=== PATIENT | female | born 1965 | race Caucasian/White ===

== ENCOUNTER 2016-07-29 14:20 | Inpatient (IN) | payer BC ==
--- NOTE | ~2016-07-29 | EKG ---
PATIENT: JEF MURDOCK UNIT #: [id number] Ventricular Rate: 77 BPM Atrial Rate: 77 BPM P-R Interval: 158 ms QRS Duration: 80 ms Q-T Interval: 384 ms QTC Calculation(Bezet): 434 ms P [place]: 20 degrees Calculated R [place]: 20 degrees Calculated T [place]: 6 degrees Diagnosis Line: Normal sinus rhythm Diagnosis Line: Normal ECG Diagnosis Line: When compared with ECG of 30-JUL-2016 06:27, Diagnosis Line: (unconfirmed) Diagnosis Line: Previous ECG has undetermined rhythm, needs review Diagnosis Line: Confirmed by MADELIN RODRIGUES MD ([id number]) on 07/30/2016 Diagnosis Line: 7:32:41 PM INTERPRETING MD: LILIA BUCKNER
--- NOTE | ~2016-07-29 | CO ---
Unit #: [id number] #: [id number] Patient: JEF MURDOCK [id number] [address] [address] [id number] I MR#: [id number] NAME: JEF MURDOCK ROOM: 571 Age: 50 Sex: F Admission Date: 07/29/2016 : 1965 Attending Physician: Ilda Hung M.D. Primary Care Physician: Nelly Lopez M.D. 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 Last month D and C. Now comes with bleeding. HISTORY OF PRESENT ILLNESS This is a 50-year-old female who had a DVT and PE in 2004. She received 6 months of Coumadin therapy and quit. In 2003 she presented with lightheadedness and dizziness. CT of the chest showed PE. The patient had endovascular procedure, including TPA. She had significant improvement. She was on Xarelto, but I am not sure about compliance. She presented to the hospital with thrombosis of the aortic valve, tricuspid valve. There were emboli in the coronary arteries, as well. This was a unique situation. The patient had a cardiac cath. The patient had placement of stents in the coronary artery. She was started on Lovenox, Coumadin, aspirin and Brilinta. As expected, she started bleeding (1) abdominal wall. Finally, at present she is taking Coumadin and Brilinta. The patient has excessive bleeding during menstrual period. She had a D and C. She had conization. Last week the patient started bleeding during menstrual period. It did not stop. The patient became symptomatic. The patient came to the hospital, and CBC showed WBC of 7.3, hemoglobin 5.7, MCV 78 and platelets 451. Her INR is 1.9. Creatinine is 0.7. LFTs are normal. She has received 4 units of PRBCs. Today hemoglobin is 8.7. At present she is still bleeding. Changing multiple pads. REVIEW OF SYSTEMS CONSTITUTIONAL: No fever, no chills, no sweats, no weight loss. EYES: No visual symptoms. EARS, NOSE AND THROAT: There is no runny nose or sore throat or difficulty hearing. CARDIOVASCULAR: No chest pain. No shortness of breath. No palpitations. No orthopnea. No PND. RESPIRATORY: No cough. No wheezing. No hemoptysis. GASTROINTESTINAL: No nausea, vomiting, diarrhea, constipation, hematochezia or melena. GENITOURINARY: No urinary frequency, hesitancy or urgency. No blood in the urine. MUSCULOSKELETAL: No muscle or joint pain. NEUROLOGIC: No headache. No numbness or tingling. No weakness. No seizure. Unit #: [id number] #: [id number] Patient: JEF MURDOCK PSYCHIATRIC: No anxiety, depression or mood disturbance. ENDOCRINE: No excessive urination or thirst. DERMATOLOGIC: No rash or change in the skin. ALLERGIC/IMMUNOLOGIC: No symptoms. HEMATOLOGIC/LYMPHATIC: Denies any symptoms. PAST MEDICAL HISTORY 1. Recurrent DVT/PE. 2. 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 3. Emboli in the coronary artery. 4. Lupus anticoagulant positive. 5. Possible coronary artery disease. ALLERGIES None. SOCIAL HISTORY No smoking. No alcohol. No drugs. 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 SURGICAL HISTORY None. FAMILY HISTORY No one in the family has bleeding or thrombosis. PHYSICAL EXAMINATION VITALS: Afebrile. Pulse 76, respirations 18, O2 sat not available, blood pressure 140/65. HEENT: Moist mucosa. Pupils equally reactive to light. Extraocular muscles intact. Sclerae anicteric. No obvious bleeding from nasal mucosa or oral mucosa. Scalp normal. Hearing normal. NECK: No JVD. No lymphadenopathy. LYMPHATIC/HEMATOLOGIC: There is no palpable adenopathy in the neck, axilla or inguinal area. CARDIOVASCULAR: S1, S2. Regular rate and rhythm. No S3 or S4. RESPIRATORY: Chest symmetrical, normal. Clear to auscultation bilaterally. No wheezes, no rales, no rhonchi. No dullness to percussion. ABDOMEN/GASTROINTESTINAL: Abdomen is soft, nontender, nondistended. No hepatosplenomegaly. EXTREMITIES: There is no clubbing, no cyanosis, no edema. No varicose veins. NEUROLOGICAL: Patient is alert, awake and oriented x3. Cranial nerves II-XII are intact. Sensory grossly intact. Motor is 4/5 in all four extremities. Gait is normal. Station is normal. Language is normal. Memory is normal. DTRs +2 in all four extremities. MUSCULOSKELETAL: No joint swelling. No bony tenderness. No muscle tenderness. SKIN: No petechiae, no rash, no ecchymosis. PSYCHIATRIC: No anxiety. No delusions or hallucinations. There is no agitation. Eye contact is normal. Affect is appropriate. There is no flight of ideas. DIAGNOSTIC STUDIES LABS: As mentioned above. ASSESSMENT AND PLAN This is a 50-year-old female who has the following active issues: Unit #: [id number] #: [id number] Patient: JEF MURDOCK 1. Thrombosis. She is positive for lupus anticoagulant. She had DVT and PE in 2004. The patient had extensive PE. The patient has taken Xarelto. Not compliant. She developed emboli in the coronary artery, thrombotic vegetation of the aortic and tricuspid valves. She received Lovenox, Coumadin, Brilinta, aspirin. She developed bleeding, and now she has been taking Coumadin and Brilinta. At present she presents with excessive bleeding with menstrual period. Her Coumadin and Brilinta are on hold. 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 The patient has excessive bleeding during menstrual period. This has been going on for more than 6 months. We recommend hysterectomy. She had D and C. She also had conization. I had an extensive discussion with the patient. We will try to get hysterectomy in the future. 3. Anemia. This is due to acute bleed. Will give PRBC transfusion. (2) folic acid, B12. 4. Cardiovascular. The patient had emboli in the coronary artery. This is a unique situation. She had placement of stents. She is taking Brilinta. She is taking Coumadin for thrombosis. At present on hold. Once the bleeding improves, then we will restart. Dictated by... Azra Mccarty M.D. Lily TD: 07/31/2016 08:25 JOB #: [id number] CONSULTATION REPORT X Azra Mccarty MD X CONSULTATION REPORT
--- NOTE | ~2016-07-29 | CO ---
Unit #: [id number] #: [id number] Patient: JEF DAMON [id number] [address] [address] [id number] I MR#: [id number] NAME: JEF DAMON ROOM: 571 Age: 50 Sex: F Admission Date: 07/29/2016 : 1965 Attending Physician: Ilda Hung M.D. Primary Care Physician: Nelly Lopez M.D. Consultation Date: 07/29/2016 CONSULTATION REPORT REASON FOR CONSULTATION Severe anemia. HISTORY OF PRESENTING ILLNESS Ms. Damon is a 50-year-old female. She was admitted by Dr. Hung today with hemoglobin of 5.4. She has been having dizziness and weakness on minimal exercise and walking. She says it started about three days ago. She denies any nausea, vomiting, denies any trouble swallowing, denies any hematemesis, melena, denies any change in bowel movements or blood in the stool. She is 50. She has not had a previous colonoscopy. She does not have any history of peptic ulcer disease or previous upper endoscopies either. Patient has been having excessive menstrual loss along with blood clots. She states her menstrual blood loss is excessive every time. However, also she had a conization of her cervix a few days ago by her metal pourer and there is a possibility that could have led to bleeding too while she was restarted on Brilinta and Coumadin. PAST HISTORY Significant for: 1. Coronary artery disease. 2. Congestive heart failure. 3. She has been on Brilinta and Coumadin. 4. No previous GI history. SOCIAL HISTORY Nonsmoker, nonalcoholic. FAMILY HISTORY Noncontributory. No history of colon cancer. REVIEW OF SYSTEMS A complete ten point review of systems was done which is unremarkable other than as mentioned above. PHYSICAL EXAMINATION VITAL SIGN: Stable, afebrile. GENERAL: No acute distress. HEENT: Pupils equal and reactive. Sclerae anicteric. Oral mucosa moist. NECK: No JVD, no lymphadenopathy. CHEST: Clear to auscultation bilaterally. CARDIOVASCULAR SYSTEM: Regular rate and rhythm. No murmurs. ABDOMEN: Soft, nontender, nondistended. Unit #: [id number] #: [id number] Patient: JEF DAMON EXTREMITIES: Without clubbing, cyanosis or edema. NEUROLOGICAL: Intact. SKIN: Warm and dry. DIAGNOSTIC STUDIES LABORATORY: Her chemistries show low iron, low ferritin levels. CBC shows a hemoglobin of 5.7 on arrival, MCV of 78, platelet count 451. INR of 2.1. ASSESSMENT AND PLAN Patient with severe iron deficiency anemia secondary to blood loss. Her obvious blood loss is menstrual, possibly worsened with her cervical surgery. She has been stopped on Brilinta and Coumadin for now. We will continue with supportive care, give her blood transfusion to bring her up to 8 and also give her iron infusion to replace her iron storers. The patient is at high risk of colorectal cancer secondary to her age. Also, because of her requiring Brilinta and Coumadin both, Dr. Hung wanted upper endoscopy and colonoscopy for evaluation before starting her back on Coumadin. I had a discussion with the patient. She is agreeable. Once stabilized and 72 hours off these medications, we will plan on doing upper endoscopy and colonoscopy for ruling out any GI loss of blood. Thank you, Dr. Hung, for this interesting consult. Will follow along. Dictated by... Tiara Billings/jayant TD: 07/30/2016 09:27 JOB #: [id number] CONSULTATION REPORT X Fernandez Khoury MD X CONSULTATION REPORT
--- NOTE | ~2016-07-29 | DS ---
Unit #: [id number] #: [id number] Patient: JEF MURDOCK [id number] [address] [address] [id number] I MR#: [id number] NAME: JEF MURDOCK ROOM: 571 Age: 50 Sex: F Admission Date: 07/29/2016 : 1965 Discharge Date: 08/02/2016 Attending Physician: Ilda Hung M.D. Primary Care Physician: Nelly Lopez M.D. DISCHARGE SUMMARY CONSULTANTS Dr. Azra Mccarty, hematology and Dr. Khoury, gastrology. DISCHARGE DIAGNOSES 1. Severe blood loss anemia secondary to excessive vaginal bleeding. 2. Status post blood transfusions x5. 3. History of lupus anticoagulant positive. 4. History of recent thrombosis in the aortic and tricuspid valves. 5. History of ST elevation myocardial infarction 06/13/2015 with spontaneous coronary artery disease involving the right coronary artery with successful PCI and stenting with drug eluting stent to the mid and distal to ostial proximal right coronary artery. 6. History of deep venous thrombosis and pulmonary embolism. 7. Obesity. DISCHARGE MEDICATIONS 1. Lupron 7.5 mg IM q. month. 2. Metoprolol tartrate 25 mg b.i.d. 3. Lipitor 40 mg q.h.s. 4. Ferrous sulfate 1 tablet daily. 5. Brilinta 90 mg b.i.d. 6. Folic acid 1 mg daily. 7. Lovenox 40 units subcu b.i.d. HOSPITAL COURSE This is a 50-year-old white female who presented to the office complaining of dizziness, increased shortness of breath and weakness. She had significant menstrual bleeding with large clots at home. Laboratory values were obtained for which the patient's blood count revealed a hemoglobin of 5.7. She was subsequently admitted. She received 2 units of packed red blood cells on the day of her admission. Throughout her stay she continued to have uterine bleeding with large clots. Dr. Khoury was asked to see the patient and wanted to rule out a GI for his anemia. But after a discussion between Dr. Hung and Dr. Mccarty who was also consulted and Dr. Khoury it was decided to hold off on GI workup at this time. Her hemoglobin gradually jens to a peak of 9.3 but not without receiving a total of [address] Mccarty saw the patient and started her on folic acid and B12. The patient has a history of deep vein thrombosis with aortic and tricuspid valve thrombosis. She also has coronary artery disease with history of myocardial infarction with drug-eluting stents in 2014. She needed to be on long-term anticoagulation with Brilinta and Coumadin. 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 Effort was made to try to find a ethylene compressor operator Unit #: [id number] #: [id number] Patient: JEF MURDOCK within her plan network. Her vaginal bleeding eventually stopped. The patient was started on Lovenox 40 mg b.i.d. Coumadin, of course, was discontinued on the day of admission. Dr. Mccarty felt the patient could be discharged home on Lupron injections 7.5 mg. He is to see her in the office on Friday for further plans. Her blood pressure has remained stable throughout her stay when she required no vasoactive support. She is stable for discharge today. PHYSICAL EXAMINATION VITAL SIGNS: Blood pressure 107/51, heart rate 79. CHEST: Clear to auscultation. HEART: S1 and S2 with regular rate and rhythm. ABDOMEN: Soft with bowel sounds present. EXTREMITIES: Without leg edema. DIAGNOSTIC STUDIES LABORATORY STUDIES: Glucose 87, BUN 12, creatinine 0.7, sodium 139, potassium 3.9, white count 6.3, hemoglobin 9.0, hematocrit 27.7, platelet count 308. CARDIOVASCULAR STUDIES: Rhythm strip shows normal sinus rhythm. PLANS 1. The patient will be discharged home today. 2. Followup with Dr. Hung on 11/01/2016 at 11:00 a.m. 3. Followup with Dr. Mccarty in the clinic on Friday. 4. Lupron injection has been given prior to discharge. 5. Coumadin will be withheld. The patient is to continue Lovenox 40 mg b.i.d. 6. Amlodipine has been discontinued and the patient will continue on metoprolol and a statin. Dictated by... Paxton Zavala A.P.R.N. for Tiara Quach TD: 08/05/2016 13:06 JOB #: [id number] DISCHARGE SUMMARY X Paxton Zavala APRN DISCHARGE SUMMARY
--- NOTE | ~2016-07-29 | BMI ---
[facility] Nutrition Therapy DATE: 07/30/16 Patient: JEF MURDOCK Physician: ATTPRE Address: [address] [place] [address] Room/Bed: [address] [place] [address], Zip: [place] [address] Admit Date: 07/29/16 Date of : [birth year] Height: 4 11 Weight: 222 101 HIGH BMI NOTE: DX: 50 Y.O. FEMALE ADMITTED FOR HYPERTENSION ANTHROPOMETRICS: 4'11", WT: 222# (101 KG), BMI: 44.8 DIET: HH INTERVENTION: 1. DIET RECOMMENDATIONS: 1. CONTINUE CURRENT DIET ORDER ABOVE TO PROMOTE GRADUAL WEIGHT LOSS TOWARDS HEALTHY BMI (19.0-25.0) OR +/-10%IBW RD WILL F/U PER PROTOCOL Respectfully, NICOLAS HERNANDEZ MS, RD, LD Food and Nutritional Services [facility] cc: client file
[~2016-07-29 14:20] MED LIST changes: -AMLODIPINE BESYL5 MG PO; -BRILINTA90 MG PO; -COUMADIN1 MG PO; -FOLIC ACID1 MG PO; -IRON325 ( 652 PO; -LIPITOR40 MG PO; -LUPRON DEPOT7.5 MG IM
[2016-07-29] MEDS ORDERED: AMLODIPINE BESYL5 MG PO (15:31)
[2016-07-29] MEDS ORDERED: COUMADIN1 MG PO (15:32)
[2016-07-29] MEDS ORDERED: BRILINTA90 MG PO (15:33)
[2016-07-29] MEDS ORDERED: LIPITOR40 MG PO (15:34)
[2016-07-29] MEDS ORDERED: IRON325 ( 652 PO (15:35)
[2016-07-30 01:28] LABS: HEMATOCRIT 20.3 % (35.0-45.0); MEAN CELL VOLUME 80.4 FL (83-96); MEAN CORPUSCULAR HEMOGLOBIN 25.5 PG (28-34); MEAN CORPUSCULAR HGB CONC 31.7 g/dL (30-36); MEAN PLATELET VOLUME 8.4 FL (6.5-11.5); RED BLOOD COUNT 2.52 X10e (3.90-5.30); RED CELL DISTRIBUTION WIDTH 16.4 % (11.0-15.5); WHITE BLOOD COUNT 6.6 X10e3 (4.0-10.5)
[2016-07-30 01:30] LABS: HEMOGLOBIN 6.4 gm/dL (12.0-16.0)
[2016-07-30 08:28] LABS: INR 1.9; PROTHROMBIN TIME (PATIENT) 20.5 SECONDS (9.6-11.5)
[2016-07-30 08:31] LABS: ALBUMIN SERUM 2.8 g/dL (3.5-5.0); ALKALINE PHOSPHATASE 36 U/L (32-92); ALT (SGPT) 16 U/L (10-40); AST (SGOT) 14 U/L (10-42); BILIRUBIN,TOTAL 0.7 mg/dL (0.2-2.0); BLOOD UREA NITROGEN 15 mg/dL (9-23); CALCIUM SERUM 7.7 mg/dL (8.4-10.2); CARBON DIOXIDE 26 mmol/L (22-31); CHLORIDE 110 mmol/L (100-111); CREATININE SERUM 0.6 mg/dL (0.6-1.4); GLOM FILT RATE Estimated ABOVE60 mL/min (>60); GLUCOSE FASTING 109 mg/dL (70-110); POTASSIUM 4.4 mmol/L (3.5-5.1); PROTEIN TOTAL SERUM 4.8 g/dL (6.0-8.3); SODIUM 139 mmol/L (135-145)
[2016-07-30 15:10] LABS: BASOPHIL% 0.7 % (0-2.5); DIFF IND NO; EOSINOPHIL# 0.1 X10e3 (0-0.7); EOSINOPHIL% 1.4 % (0.0-7.0); HEMATOCRIT 27.1 % (35.0-45.0); HEMOGLOBIN 8.7 gm/dL (12.0-16.0); LYMPHOCYTE# 1.5 X10e3 (1.0-3.5); LYMPHOCYTE% 24.4 % (17.0-45.0); MEAN CELL VOLUME 81.2 FL (83-96); MEAN PLATELET VOLUME 8.3 FL (6.5-11.5); MONOCYTE# 0.6 X10e3 (0-1.0); MONOCYTE% 9.2 % (3.0-12.0); NEUTROPHIL# 3.9 X10e3 (1.5-7.1); NEUTROPHIL% 64.3 % (40-75); PLATELET COUNT 340 X10e3 (140-420); RED BLOOD COUNT 3.33 X10e (3.90-5.30); RED CELL DISTRIBUTION WIDTH 16.3 % (11.0-15.5); WHITE BLOOD COUNT 6.1 X10e3 (4.0-10.5)
[2016-07-30 23:55] LABS: BASOPHIL# 0.1 X10e3 (0-0.3); BASOPHIL% 0.7 % (0-2.5); EOSINOPHIL# 0.2 X10e3 (0-0.7); EOSINOPHIL% 2.3 % (0.0-7.0); HEMATOCRIT 25.1 % (35.0-45.0); HEMOGLOBIN 8.2 gm/dL (12.0-16.0); LYMPHOCYTE# 1.9 X10e3 (1.0-3.5); LYMPHOCYTE% 24.5 % (17.0-45.0); MEAN CELL VOLUME 80.8 FL (83-96); MEAN CORPUSCULAR HEMOGLOBIN 26.4 PG (28-34); MEAN CORPUSCULAR HGB CONC 32.7 g/dL (30-36); MEAN PLATELET VOLUME 8.5 FL (6.5-11.5); MONOCYTE# 0.7 X10e3 (0-1.0); NEUTROPHIL# 4.8 X10e3 (1.5-7.1); NEUTROPHIL% 63.5 % (40-75); PLATELET COUNT 345 X10e3 (140-420); RED CELL DISTRIBUTION WIDTH 16.3 % (11.0-15.5); WHITE BLOOD COUNT 7.6 X10e3 (4.0-10.5)
[2016-07-30 23:56] LABS: DIFF IND NO
[2016-07-31 08:27] LABS: INR 1.4; PROTHROMBIN TIME (PATIENT) 14.7 SECONDS (9.6-11.5)
[2016-07-31 08:34] LABS: ALBUMIN SERUM 2.7 g/dL (3.5-5.0); ALKALINE PHOSPHATASE 37 U/L (32-92); ALT (SGPT) 16 U/L (10-40); AST (SGOT) 15 U/L (10-42); BILIRUBIN,TOTAL 0.6 mg/dL (0.2-2.0); BLOOD UREA NITROGEN 17 mg/dL (9-23); BUN/CREATININE RATIO 24.28; CALCIUM SERUM 8.1 mg/dL (8.4-10.2); CARBON DIOXIDE 24 mmol/L (22-31); CHLORIDE 110 mmol/L (100-111); CREATININE SERUM 0.7 mg/dL (0.6-1.4); GLOM FILT RATE Estimated ABOVE60 mL/min (>60); GLUCOSE FASTING 108 mg/dL (70-110); POTASSIUM 4.5 mmol/L (3.5-5.1); PROTEIN TOTAL SERUM 4.7 g/dL (6.0-8.3); SODIUM 140 mmol/L (135-145)
[2016-07-31 08:40] LABS: BASOPHIL# 0.1 X10e3 (0-0.3); BASOPHIL% 0.8 % (0-2.5); EOSINOPHIL# 0.2 X10e3 (0-0.7); EOSINOPHIL% 2.5 % (0.0-7.0); HEMATOCRIT 24.2 % (35.0-45.0); HEMOGLOBIN 7.8 gm/dL (12.0-16.0); LYMPHOCYTE# 1.7 X10e3 (1.0-3.5); LYMPHOCYTE% 22.7 % (17.0-45.0); MEAN CELL VOLUME 81.3 FL (83-96); MEAN CORPUSCULAR HEMOGLOBIN 26.3 PG (28-34); MEAN CORPUSCULAR HGB CONC 32.3 g/dL (30-36); MEAN PLATELET VOLUME 8.5 FL (6.5-11.5); MONOCYTE# 0.9 X10e3 (0-1.0); MONOCYTE% 11.9 % (3.0-12.0); NEUTROPHIL# 4.7 X10e3 (1.5-7.1); NEUTROPHIL% 62.1 % (40-75); PLATELET COUNT 328 X10e3 (140-420); RED BLOOD COUNT 2.97 X10e (3.90-5.30); RED CELL DISTRIBUTION WIDTH 16.3 % (11.0-15.5); WHITE BLOOD COUNT 7.6 X10e3 (4.0-10.5)
[2016-07-31 08:44] LABS: DIFF IND YES
[2016-07-31 09:27] LABS: NUCLEATED RED BLOOD CELL 1 /100 (0)
[2016-07-31 09:28] LABS: ANISOCYTOSIS MOD
[2016-07-31 09:29] LABS: PLATELET ESTIMATE NORMAL (NORMAL); POIKILOCYTOSIS SL; POLYCHROMASIA SL
[2016-07-31 15:18] LABS: BASOPHIL% 0.5 % (0-2.5); EOSINOPHIL# 0.3 X10e3 (0-0.7); EOSINOPHIL% 2.7 % (0.0-7.0); HEMATOCRIT 24.8 % (35.0-45.0); HEMOGLOBIN 8.1 gm/dL (12.0-16.0); LYMPHOCYTE# 1.7 X10e3 (1.0-3.5); MEAN CELL VOLUME 83.7 FL (83-96); MEAN CORPUSCULAR HEMOGLOBIN 27.3 PG (28-34); MEAN CORPUSCULAR HGB CONC 32.7 g/dL (30-36); MEAN PLATELET VOLUME 8.5 FL (6.5-11.5); MONOCYTE% 10.9 % (3.0-12.0); NEUTROPHIL# 6.4 X10e3 (1.5-7.1); NEUTROPHIL% 67.9 % (40-75); PLATELET COUNT 324 X10e3 (140-420); RED BLOOD COUNT 2.96 X10e (3.90-5.30); RED CELL DISTRIBUTION WIDTH 16.6 % (11.0-15.5); WHITE BLOOD COUNT 9.5 X10e3 (4.0-10.5)
[2016-07-31 15:21] LABS: DIFF IND NO
[2016-07-31 19:48] LABS: BASOPHIL# 0.1 X10e3 (0-0.3); BASOPHIL% 0.6 % (0-2.5); EOSINOPHIL# 0.3 X10e3 (0-0.7); EOSINOPHIL% 2.1 % (0.0-7.0); HEMATOCRIT 28.2 % (35.0-45.0); HEMOGLOBIN 9.3 gm/dL (12.0-16.0); LYMPHOCYTE# 2.1 X10e3 (1.0-3.5); LYMPHOCYTE% 17.9 % (17.0-45.0); MEAN CELL VOLUME 84.8 FL (83-96); MEAN PLATELET VOLUME 8.8 FL (6.5-11.5); MONOCYTE# 1.3 X10e3 (0-1.0); MONOCYTE% 10.7 % (3.0-12.0); NEUTROPHIL# 8.2 X10e3 (1.5-7.1); NEUTROPHIL% 68.7 % (40-75); PLATELET COUNT 340 X10e3 (140-420); RED BLOOD COUNT 3.32 X10e (3.90-5.30); RED CELL DISTRIBUTION WIDTH 16.8 % (11.0-15.5)
[2016-07-31 19:54] LABS: DIFF IND NO
[2016-08-01 01:56] LABS: HEMOGLOBIN 7.8 gm/dL (12.0-16.0); MEAN CELL VOLUME 85.2 FL (83-96); MEAN CORPUSCULAR HEMOGLOBIN 27.7 PG (28-34); MEAN CORPUSCULAR HGB CONC 32.5 g/dL (30-36); MEAN PLATELET VOLUME 8.5 FL (6.5-11.5); RED BLOOD COUNT 2.82 X10e (3.90-5.30); RED CELL DISTRIBUTION WIDTH 16.6 % (11.0-15.5); WHITE BLOOD COUNT 9.5 X10e3 (4.0-10.5)
[2016-08-01 06:21] LABS: HEMATOCRIT 26.1 % (35.0-45.0); HEMOGLOBIN 8.5 gm/dL (12.0-16.0); MEAN CELL VOLUME 85.8 FL (83-96); MEAN CORPUSCULAR HEMOGLOBIN 27.9 PG (28-34); MEAN CORPUSCULAR HGB CONC 32.6 g/dL (30-36); MEAN PLATELET VOLUME 8.6 FL (6.5-11.5); RED BLOOD COUNT 3.04 X10e (3.90-5.30); RED CELL DISTRIBUTION WIDTH 16.7 % (11.0-15.5); WHITE BLOOD COUNT 8.4 X10e3 (4.0-10.5)
[2016-08-01 07:11] LABS: ALBUMIN SERUM 2.7 g/dL (3.5-5.0); ALKALINE PHOSPHATASE 38 U/L (32-92); ALT (SGPT) 14 U/L (10-40); AST (SGOT) 12 U/L (10-42); BILIRUBIN,TOTAL 0.9 mg/dL (0.2-2.0); BLOOD UREA NITROGEN 14 mg/dL (9-23); BUN/CREATININE RATIO 23.33; CALCIUM SERUM 8.2 mg/dL (8.4-10.2); CARBON DIOXIDE 26 mmol/L (22-31); CHLORIDE 109 mmol/L (100-111); CREATININE SERUM 0.6 mg/dL (0.6-1.4); GLOM FILT RATE Estimated ABOVE60 mL/min (>60); GLUCOSE FASTING 105 mg/dL (70-110); POTASSIUM 4.3 mmol/L (3.5-5.1); PROTEIN TOTAL SERUM 4.9 g/dL (6.0-8.3); SODIUM 142 mmol/L (135-145)
[2016-08-01 16:57] LABS: HEMATOCRIT 28.9 % (35.0-45.0); HEMOGLOBIN 9.2 gm/dL (12.0-16.0); MEAN CELL VOLUME 87.5 FL (83-96); MEAN CORPUSCULAR HEMOGLOBIN 27.8 PG (28-34); MEAN CORPUSCULAR HGB CONC 31.8 g/dL (30-36); MEAN PLATELET VOLUME 8.7 FL (6.5-11.5); RED BLOOD COUNT 3.31 X10e (3.90-5.30); RED CELL DISTRIBUTION WIDTH 16.8 % (11.0-15.5); WHITE BLOOD COUNT 9.5 X10e3 (4.0-10.5)
[2016-08-02 00:41] LABS: HEMATOCRIT 25.4 % (35.0-45.0); HEMOGLOBIN 8.2 gm/dL (12.0-16.0); MEAN CELL VOLUME 87.2 FL (83-96); MEAN CORPUSCULAR HEMOGLOBIN 28.1 PG (28-34); MEAN CORPUSCULAR HGB CONC 32.2 g/dL (30-36); MEAN PLATELET VOLUME 8.3 FL (6.5-11.5); RED BLOOD COUNT 2.91 X10e (3.90-5.30); RED CELL DISTRIBUTION WIDTH 17.3 % (11.0-15.5); WHITE BLOOD COUNT 8.2 X10e3 (4.0-10.5)
[2016-08-02 09:16] LABS: HEMATOCRIT 27.7 % (35.0-45.0); MEAN CELL VOLUME 87.2 FL (83-96); MEAN CORPUSCULAR HEMOGLOBIN 28.2 PG (28-34); MEAN CORPUSCULAR HGB CONC 32.3 g/dL (30-36); MEAN PLATELET VOLUME 8.5 FL (6.5-11.5); RED BLOOD COUNT 3.18 X10e (3.90-5.30); RED CELL DISTRIBUTION WIDTH 17.3 % (11.0-15.5); WHITE BLOOD COUNT 6.3 X10e3 (4.0-10.5)
[2016-08-02 09:22] LABS: ALBUMIN SERUM 2.9 g/dL (3.5-5.0); ALKALINE PHOSPHATASE 44 U/L (32-92); ALT (SGPT) 14 U/L (10-40); AST (SGOT) 16 U/L (10-42); BILIRUBIN,TOTAL 1.2 mg/dL (0.2-2.0); BLOOD UREA NITROGEN 12 mg/dL (9-23); BUN/CREATININE RATIO 17.14; CALCIUM SERUM 8.5 mg/dL (8.4-10.2); CARBON DIOXIDE 25 mmol/L (22-31); CHLORIDE 107 mmol/L (100-111); CREATININE SERUM 0.7 mg/dL (0.6-1.4); GLOM FILT RATE Estimated ABOVE60 mL/min (>60); GLUCOSE FASTING 87 mg/dL (70-110); POTASSIUM 3.9 mmol/L (3.5-5.1); PROTEIN TOTAL SERUM 5.4 g/dL (6.0-8.3); SODIUM 139 mmol/L (135-145)
[2016-08-02] MEDS ORDERED: LUPRON DEPOT7.5 MG IM (13:00)
[2016-08-02] MEDS ORDERED: LOVENOX40 MG/0.4 INJ (13:03)
[2016-08-02] MEDS ORDERED: FOLIC ACID1 MG PO (13:04)
== END 2016-08-02 14:20 | disposition home or self-care (01) | DRG 812 ==
LOC: C5C 14:20
PROVIDERS: Internal Medicine; Internal Medicine Cardiovascular Disease; Internal Medicine Hematology
PROC: 30233N1 Transfusion of Nonautologous Red Blood Cells into Peripheral Vein, Percutaneous Approach (ICD-10-PCS; principal; 2016-07-29)
DX: D62 Acute posthemorrhagic anemia (principal); D68.61 Antiphospholipid syndrome; Z68.41 Body mass index [BMI] 40.0-44.9, adult; I25.2 Old myocardial infarction; I25.10 Atherosclerotic heart disease of native coronary artery without angina pectoris; Z95.5 Presence of coronary angioplasty implant and graft; N92.0 Excessive and frequent menstruation with regular cycle; Z86.711 Personal history of pulmonary embolism; Z86.718 Personal history of other venous thrombosis and embolism; E66.9 Obesity, unspecified; I10 Essential (primary) hypertension; Z79.01 Long term (current) use of anticoagulants
CPT/HCPCS: 80053; 84484; 85025; 85027; 85610; 86850; 86900; 86901; 86923; 93005; 94760; J1650; J2916; J3420; J9217; P9016

== ENCOUNTER → 2016-07-29 | Outpatient (CLI) | payer BC ==
[~2016-07-29] MED LIST: AMLODIPINE BESYL5 MG PO; BRILINTA90 MG PO; COUMADIN1 MG PO; ECHINACEA PO; ECHINACEA500 MG PO; FOLIC ACID1 MG PO; IBUPROFEN PO; IBUPROFEN800 MG PO; IRON325 ( 652 PO; LIPITOR40 MG PO; LORTAB 7.5-5001 TAB PO; LOVENOX40 MG/0.4 INJ; LUPRON DEPOT7.5 MG IM; METOPROLOL TAR25 MG PO; PERCOCET5/325 PO; [UNRECOGNIZED DRUG - OTHER]
[2016-07-29 13:50] LABS: HEMATOCRIT 18.5 % (35.0-45.0); MEAN CELL VOLUME 78.6 FL (83-96); MEAN CORPUSCULAR HEMOGLOBIN 24.2 PG (28-34); MEAN CORPUSCULAR HGB CONC 30.7 g/dL (30-36); MEAN PLATELET VOLUME 8.4 FL (6.5-11.5); RED BLOOD COUNT 2.35 X10e (3.90-5.30); WHITE BLOOD COUNT 7.3 X10e3 (4.0-10.5)
[2016-07-29 14:03] LABS: INR 2.1; PROTHROMBIN TIME (PATIENT) 22.3 SECONDS (9.6-11.5)
[2016-07-29 14:15] LABS: BLOOD UREA NITROGEN 14 mg/dL (9-23); CALCIUM SERUM 8.1 mg/dL (8.4-10.2); CARBON DIOXIDE 21 mmol/L (22-31); CHLORIDE 112 mmol/L (100-111); CREATININE SERUM 0.8 mg/dL (0.6-1.4); GLOM FILT RATE Estimated ABOVE60 mL/min (>60); GLUCOSE FASTING 153 mg/dL (70-110); POTASSIUM 3.8 mmol/L (3.5-5.1); SODIUM 138 mmol/L (135-145)
[2016-07-29 14:21] LABS: HEMOGLOBIN 5.7 gm/dL (12.0-16.0)
== END | disposition home or self-care (01) ==
LOC: CLAB 13:08
PROVIDERS: Internal Medicine Cardiovascular Disease
DX: I48.91 Unspecified atrial fibrillation (principal); R60.9 Edema, unspecified; E78.00 Pure hypercholesterolemia, unspecified
CPT/HCPCS: 36415; 80048; 85027; 85610

== ENCOUNTER → 2016-08-29 | Outpatient (CLI) | payer BC ==
[~2016-08-29] MED LIST changes: +AMLODIPINE BESYL5 MG PO; +BRILINTA90 MG PO; +COUMADIN1 MG PO; +FOLIC ACID1 MG PO; +IRON325 ( 652 PO; +LIPITOR40 MG PO; +LUPRON DEPOT7.5 MG IM
--- NOTE | ~2016-08-29 | MY8 ---
[facility] A Service of [facility] RADIOLOGY TEXT RESULTS PATIENT: JEF MURDOCK LOCATION: [facility] : [birth year] UNIT #: [id number] AGE: [address]: Nelly Lopez MD SEX: F ORDER DR: [id number] [facility] [address] [facility]. [place], [place] [address] [id number] O MR#: [id number] Acc #: [id number] NAME: JEF MURDOCK : 1965 SEX: F STUDY DATE/TIME: 08/29/2016 8:12 UNIT: [facility] ROOM: STUDY DESCRIPTION: MY Mammogram Dx Dig Rt Attending Physician: Nelly Lopez M.D. Referring Physician: Nelly Lopez M.D. Ordering Physician: Nelly Lopez M.D. Primary Care Physician: Nelly Lopez M.D. MEDICAL IMAGING REPORT This report is preliminary unless electronic signature is present EXAM Right digital diagnostic mammogram with CAD 08/29/2016 INDICATIONS 50-year-old female with history of probably benign calcifications in the right breast. 6-month followup requested. No new problems. No personal history of breast cancer. Family history positive in a aunt. TECHNIQUE CC, MLO magnification CC, magnification MLO and magnification true lateral views of the right breast were obtained reviewed with an approved CAD device. COMPARISON 03/12/2016 02/21/2016 03/09/2014 12/18/2012 03/09/2010 FINDINGS Breast parenchyma is composed of scattered fibroglandular densities and unchanged. There are benign calcifications in the right breast. The previously documented probably benign calcifications in the upper outer quadrant right breast have not changed in the 6-month interval. There is no new dominant nodule, mass or new suspicious cluster of microcalcifications. No new adenopathy. The patient underwent an ultrasound of the right breast in February 2016 which was also negative. Based on stability of the findings in the past 6 months findings remain probably benign and return to an annual screening regimen is recommended to reassess the calcifications in the upper outer quadrant for 1 year stability. Findings and recommendations have been discussed with the patient here in the department and she has voiced understanding and agreement. IMPRESSION 1. Probably benign calcifications in the upper outer right breast are unchanged. Reassessment in conjunction with bilateral screening [facility]. [facility] A Service of [facility] RADIOLOGY TEXT RESULTS PATIENT: JEF MURDOCK LOCATION: [facility] : [birth year] UNIT #: [id number] AGE: [address]: Nelly Lopez MD SEX: F ORDER DR: mammogram in 6 months to document 1 year stability is recommended. See discussion above. BIRADS: 3 Dictated by... Tono Best M.D. THIS IS AN ELECTRONICALLY VERIFIED REPORT Tono Best M.D. at 08/29/2016 5:11 PM [place] TD: 08/29/2016 09:23 JOB #: [id number] MEDICAL IMAGING REPORT Page 1 of 1 COPY
== END | disposition home or self-care (01) ==
LOC: CMAM 07:48
DX: R92.1 Mammographic calcification found on diagnostic imaging of breast (principal); R92.8 Other abnormal and inconclusive findings on diagnostic imaging of breast
CPT/HCPCS: G0206